=== PATIENT | male | born 1990 | race Caucasian/White ===

== ENCOUNTER 2017-09-29 14:02 | Outpatient (CLI) | payer BC ==
--- NOTE | 2017-09-29 15:10 | RAD ---
CHEST TWO VIEWS: History: Dyspnea. FINDINGS: Heart size is slightly enlarged. Mediastinal structures are unremarkable. There is slight elevation o f the right hemidiaphragm. The lungs are clear of infiltrates. IMPRESSION: Minimal cardiomegaly. POS: H
== END 2017-09-29 14:03 | disposition home or self-care (01) ==
LOC: RAD 14:02
PROVIDERS: ATTEND Internal Medicine Critical Care Medicine
DX: R06.00 Dyspnea, unspecified (principal); I51.7 Cardiomegaly
CPT/HCPCS: 71046